=== PATIENT | male | born 1995 | race Caucasian/White ===

== ENCOUNTER 2019-01-04 17:15 | Emergency (ER) | payer OTHER ==
[2019-01-04 17:29] VITALS: TEMP 99; BMI 22.3
[2019-01-04] MEDS ORDERED: PANTOPRAZOLE SODIUM 40 MG VIAL IVPB ONE (18:26)
[2019-01-04] MEDS ORDERED: ACETAMINOPHEN 1000 MG/100 ML VIAL (NON FORMULARY) IVPB ONE (18:26)
[2019-01-04] MEDS ORDERED: ONDANSETRON 4 MG/2 ML VIAL IVPUSH ONE (18:26)
[2019-01-04] MEDS ORDERED: PANTOPRAZOLE SODIUM 40 MG/100 ML BAG IVPB ONE (18:44)
[2019-01-04] MEDS ORDERED: ACETAMINOPHEN INJECTION 100 ML IVPB ONE ×2 (18:44→20:23)
[2019-01-04 19:04] LABS: BASO % 0.2 % (0-2.0); EOS % 0.4 % (0-4.5); HEMATOCRIT 41.8 % (35.4-49); HEMOGLOBIN 14.5 GM/dL (11.7-16.9); LYMPH % 9.9 % (8-40); MCH 29.4 pg (25.7-33.7); MCHC 34.6 g/dl (32.0-35.9); MEAN PLT VOLUME 11.3 fl (7.5-11.1); NEUT % 85.5 % (42.8-82.8); PLATELET COUNT 159 K/MM3 (134-434); RBC 4.91 M/mm3 (4.00-5.60); RDW 12.7 % (11.9-15.9); WHITE BLOOD COUNT 13.4 K/mm3 (4.0-10.0)
[2019-01-04 19:16] LABS: URINE APPEARANCE CLEAR; URINE BILIRUBIN NEGATIVE (<2.0 mg/dL); URINE COLOR YELLOW; URINE GLUCOSE (UA) NEGATIVE (NEGATIVE); URINE KETONE TRACE (NEGATIVE); URINE LEUK ESTERASE NEGATIVE (NEGATIVE); URINE NITRITE NEGATIVE (NEGATIVE); URINE PROTEIN NEGATIVE (NEGATIVE); URINE UROBILINOGEN NEGATIVE mg/dL (0.2-1.0)
[2019-01-04 19:20] LABS: INR 1.11 (0.83-1.09); PROTHROMBIN TIME (PATIENT) 13.1 SEC (9.7-13.0)
[2019-01-04 20:06] LABS: ALBUMIN 4.6 g/dl (3.4-5.0); ALK PHOS 94 U/L (45-117); ANION GAP 8 MMOL/L (8-16); BILIRUBIN,TOTAL 0.4 mg/dL (0.2-1); BLOOD UREA NITROGEN 16 mg/dL (7-18); CALCIUM 9.8 mg/dL (8.5-10.1); CHLORIDE 99 mmol/L (98-107); CO2 28 mmol/L (21-32); CREATININE 0.8 mg/dL (0.55-1.3); GLUCOSE,RANDOM 99 mg/dL (74-106); LIPASE 83 U/L (73-393); POTASSIUM 4.4 mmol/L (3.5-5.1); SGOT/AST 38 U/L (15-37); SGPT/ALT 39 U/L (13-61); SODIUM 134 mmol/L (136-145); TOT PROT 9.1 g/dl (6.4-8.2)
[2019-01-04] MEDS ORDERED: ONDANSETRON 4 MG/2 ML VIAL ONE (20:23)
[2019-01-04] MEDS ORDERED: DICYCLOMINE HCL 20 MG/2 ML AMPUL IM ONE (20:30)
--- NOTE | 2019-01-04 20:30 | PDOC ---
Attending Attestation - HPI HPI: 01/04/19 23:51 The patient is a 23 year old male, with a significant past medical history of asthma and percocet abuse (5 tablets a day) who presents to the emergency department with 2 days of epigastric pain associated with nausea, vomiting, and diarrhea. The patient reports having multiple episodes of bright red blood in vomiting and diarrhea. The patient reports having chest pain described as burning sensation. The patient notes he ate sweet peas with milk last night for dinner. The patient denies fever, chills, shortness of breath, headache or dizziness. The patient denies dysuria. Allergies: NKDA Past surgical history:None reported Social history: percocet use (5x per day) - Physicial Exam PE: 01/04/19 23:51 GENERAL: Awake, alert, and fully oriented, in no acute distress HEAD: No signs of trauma EYES: PERRLA, EOMI, sclera anicteric, conjunctiva clear ENT: Auricles normal inspection, hearing grossly normal, nares patent, oropharynx clear without exudates. Moist mucosa NECK: Normal ROM, supple, no lymphadenopathy, JVD, or masses LUNGS: Breath sounds equal, clear to auscultation bilaterally. No wheezes, and no crackles HEART: Regular rate and rhythm, normal S1 and S2, no murmurs, rubs or gallops ABDOMEN: (+) mild diffuse abdominal tenderness. Soft, normoactive bowel sounds. No guarding, no rebound. No masses EXTREMITIES: Normal range of motion, no edema. No clubbing or cyanosis. No cords, erythema, or tenderness NEUROLOGICAL: Cranial nerves II through XII grossly intact. Normal speech, normal gait SKIN: Warm, Dry, normal turgor, no rashes or lesions noted. <Vinny Verdugo - Last Filed: 01/05/19 00:04> - Medical Decision Making 01/05/19 01:09 EXAM: ABDOMEN \T\ PELVIS CT WITH CONTR HISTORY: Pain COMPARISON: None. FINDINGS: Lung bases are clear. The visualized cardiac chambers are normal size and configuration. Normal liver, gallbladder, pancreas, spleen, adrenal glands and kidneys. The stomach and small bowel are normal. There is a large amount of diffuse solid stool through the mid sigmoid colon with narrowing of the mid and distal sigmoid colon and rectum which may represent infection. No bowel obstruction. There is a small amount of pelvic free fluid but no abscess or free air. There is no aortic aneurysm. There is no significant retroperitoneal lymphadenopathy. Tiny fat containing umbilical hernia is noted. The appendix is normal. The urinary bladder and prostate gland are normal. There is no significant pelvic lymphadenopathy. IMPRESSION: Suspected rectosigmoid colitis with large amount of proximal solid stool. One or more of the following dose reduction techniques were used: automated exposure control, adjustment of the mA and/or kV according to patient size, use of iterative reconstructive technique. Read by: Jesus Baxter MD Documentation prepared by Marsha Martínez, acting as medical technicians for Jimena Anderson DO. <Marsha Martínez - Last Filed: 01/05/19 01:09> - Resident Resident Name: Mich Ríos - ED Attending Attestation I have performed the following: I have examined & evaluated the patient, The case was reviewed & discussed with the resident, I agree w/resident's findings & plan, Exceptions are as noted - HPI HPI: 01/05/19 01:13 23yo male presents for eval of nause and vomiting. Pt states it started after eating beans with milk yesterday. States he thought the meal didn't taste good. Denies fevers. C/o lower abd pain. No dysuria. States cramping and burning sensation. - Physicial Exam PE: 01/05/19 01:14 Gen: aaox3, nad heart: +s1s2 reg lungs: cta b/l abd: soft, mild lower abd ttp, no rebound or guarding, nondistended ext: no c/c/e, ambulatory with a steady gait - Medical Decision Making 01/04/19 20:30 I, Dr. Jimena Anderson DO, attest that this document has been prepared under my direction and personally reviewed by me in its entirety. I further attest, that it accurately reflects all work, treatment, procedures and medical decision -making performed by me. 01/04/19 23:19 a/p: 23yo male with n/v/d and vomiting brb -n/v/d started after eating beans w milk yesterday -states he thought the food was bad -no f/c -c/o abd pain and cramping -no vomiting of blood in the ED -no brbpr on residents rectal exam -will send labs, zofran, ivf hydraiton -will monitor and reassess 01/04/19 23:21 pt states cramping in his abd- abd is nondistended, mildly diffusely ttp, but no rebound or guarding -will add bentyl 01/04/19 23:21 on re-eval: still with abd pain- will add gi cocktail- states burning sensation , abd is soft, no longer nauseated, no vomiting -sitting up, in nad 01/05/19 01:05 pt with procto-rectocolitis on ct will start abx 01/05/19 01:15 pt states he wants to go home tonight will give abx in the ED and then dc with oral abx and gi follow up answered all questions discussed all reasons to reutrn to the ED <Jimena Anderson - Last Filed: 01/05/19 01:21> *DC/Admit/Observation/Transfer - Discharge Dispostion Decision to Admit order: No <Jimena Anderson - Last Filed: 01/05/19 01:21> Diagnosis at time of Disposition: Vomiting, Colitis - Discharge Dispostion Disposition: HOME Condition at time of disposition: Stable - Prescriptions Prescriptions: Ciprofloxacin [Cipro (Restricted To Id)] 500 mg PO Q12H #20 tablet metroNIDAZOLE [Flagyl -] 500 mg PO TID #30 tablet - Referrals Referrals: Denilson Aguila DO [Staff Physician] - Huang Ngo MD [Staff Physician] - - Patient Instructions Printed Discharge Instructions: DI for Colitis Additional Instructions: Please take all antibiotics as prescribed. Please only have clear liquids for 48 hours. If you are feeling better after 48 hours you can add in the BRAT diet - bananas, rice, apple sauce and toast. Please take tylenol as needed for pain. Please stop using percocet. Please return to the ED if you pain worsens or if you have any further concerns. If you develop a fever while taking the antibiotics please return to the ED. Please make an appointment to see the tear down matcher darlin. Please make an appointment to follow up with your PMD. - Post Discharge Activity Forms/Work/School Notes: Back to Work Heart Score/ECG Review - ECG Intrepretation Comment:: 01/04/19 23:22 sinus at 90, nl axis, nl interval, pac, no acute st/t wave findings <Jimena Anderson - Last Filed: 01/05/19 01:21> Attestations - Attestations 01/04/19 23:52 Documentation prepared by Vinny Verdugo, acting as medical technicians for Jimena Anderson DO, MD <Vinny Verdugo - Last Filed: 01/05/19 00:04>
--- NOTE | 2019-01-04 20:38 | PDOC ---
History of Present Illness - General Chief Complaint: Vomiting Blood Stated Complaint: ABD PAIN Time Seen by Provider: 01/04/19 18:17 History Source: Patient Exam Limitations: No Limitations - History of Present Illness Initial Comments: 01/04/19 20:32 Patient is a 23M with history of asthma and percocet abuse here today complaining of vomiting and diarrhea for two days. Patient reports bright red blood in vomit and diarrhea with multiple episodes. Endorses associated epigastric abdominal pain. Denies fevers, chills. Denies dysuria. Endorses a substernal burning chest pain. Uses percocet 5x per day. Denies NSAID use. Denies blood thinners. Denies shortness of breath, headache. Past History - Past Medical History Allergies/Adverse Reactions: Allergies Allergy/AdvReac Type Severity Reaction Status Date / Time No Known Allergies Allergy Verified 01/04/19 17:30 COPD: No - Suicide/Smoking/Psychosocial Hx Smoking History: Never smoked Review of Systems - Review of Systems Able to Perform ROS?: Yes Comments:: 01/04/19 20:36 GENERAL/CONSTITUTIONAL: No fever or chills. No weakness. HEAD, EYES, EARS, NOSE AND THROAT: No change in vision. No sore throat. CARDIOVASCULAR: No chest pain or shortness of breath RESPIRATORY: No cough, wheezing, or hemoptysis. GASTROINTESTINAL: +nausea, +vomiting, +diarrhea. GENITOURINARY: No dysuria, frequency, or change in urination. MUSCULOSKELETAL: No joint or muscle swelling or pain. No neck or back pain. SKIN: No rash NEUROLOGIC: No headache, vertigo, loss of consciousness, or change in strength/ sensation. HEMATOLOGIC/LYMPHATIC: No anemia, easy bleeding, or history of blood clots. ALLERGIC/IMMUNOLOGIC: No hives or skin allergy. *Physical Exam - Vital Signs Last Vital Signs Temp Pulse Resp BP Pulse Ox 99.0 F 79 18 133/85 99 01/04/19 17:28 01/04/19 17:28 01/04/19 17:28 01/04/19 17:28 01/04/19 17:28 - Physical Exam Comments: 01/04/19 20:40 GENERAL: Awake, alert, and fully oriented, running between bathroom and bed HEAD: No signs of trauma, normocephalic, atraumatic EYES: PERRLA, EOMI, sclera anicteric, conjunctiva clear ENT: Auricles normal inspection, hearing grossly normal, nares patent, oropharynx clear without exudates. Moist mucosa NECK: Normal ROM, supple, no lymphadenopathy, JVD, or masses LUNGS: No distress, speaks full sentences, clear to auscultation bilaterally HEART: Regular rate and rhythm, normal S1 and S2, no murmurs, rubs or gallops, peripheral pulses normal and equal bilaterally. ABDOMEN: Nontender, soft, distractable EXTREMITIES: Normal inspection, Normal range of motion, no edema. No clubbing or cyanosis. NEUROLOGICAL: Cranial nerves II through XII grossly intact. Normal speech, normal gait, no focal sensorimotor deficits SKIN: Warm, Dry, normal turgor, no rashes or lesions noted. Moderate Sedation - Procedure Monitoring Vital Signs: Procedure Monitoring Vital Signs Temperature 99.0 F 01/04/19 17:28 Pulse Rate 79 01/04/19 17:28 Respiratory Rate 18 01/04/19 17:28 Blood Pressure 133/85 01/04/19 17:28 O2 Sat by Pulse Oximetry (%) 99 01/04/19 17:28 ED Treatment Course - LABORATORY CBC & Chemistry Diagram: 01/04/19 18:40 01/04/19 18:40 - ADDITIONAL ORDERS Additional order review: Laboratory Results 01/04/19 01/04/19 01/04/19 19:19 19:00 18:50 PT with INR INR Sodium Potassium Chloride Carbon Dioxide Anion Gap BUN Creatinine Creat Clearance w eGFR Random Glucose Calcium Total Bilirubin AST ALT Alkaline Phosphatase Total Protein Albumin Lipase Urine Color Yellow Urine Appearance Clear Urine pH 8.0 Ur Specific [place] 1.024 Urine Protein Negative Urine Glucose (UA) Negative Urine Ketones Trace H Urine Blood Negative Urine Nitrite Negative Urine Bilirubin Negative Urine Urobilinogen Negative Ur Leukocyte Esterase Negative Stool Occult Blood Negative Anti-A Titer Cancelled Blood Type Cancelled Antibody Screen Cancelled 01/04/19 01/04/19 18:40 18:40 PT with INR 13.10 H INR 1.11 H Sodium 134 L Potassium 4.4 Chloride 99 Carbon Dioxide 28 Anion Gap 8 BUN 16 Creatinine 0.8 Creat Clearance w eGFR > 60 Random Glucose 99 Calcium 9.8 Total Bilirubin 0.4 AST 38 H ALT 39 Alkaline Phosphatase 94 Total Protein 9.1 H Albumin 4.6 Lipase 83 Urine Color Urine Appearance Urine pH Ur Specific [place] Urine Protein Urine Glucose (UA) Urine Ketones Urine Blood Urine Nitrite Urine Bilirubin Urine Urobilinogen Ur Leukocyte Esterase Stool Occult Blood Anti-A Titer Blood Type Antibody Screen 01/04/19 18:40 RBC 4.91 MCV 85.0 MCHC 34.6 RDW 12.7 MPV 11.3 H Neutrophils % 85.5 H Lymphocytes % 9.9 Monocytes % 4.0 Eosinophils % 0.4 Basophils % 0.2 Medical Decision Making - Medical Decision Making 01/04/19 23:18 Patient is 23M here today with vomiting and diarrhea. Vitals normal and stable. No peritoneal signs on exam, moving freely without pain. Patient reports multiple episodes of vomiting/diarrhea in ED, but none witnessed. Rectal exam normal with no sally blood on exam. Stool for occult blood negative. DDx includes, but is not limited to: gastritis, uti, cyclic vomiting. CBC shows leukocytosis. CMP reassuring. UA negative. Patient reassessed, still complaining of epigastric pain and nausea. Bentyl give. Will simethicone. Patient signed out to Dr Anderson. *DC/Admit/Observation/Transfer Diagnosis at time of Disposition: Vomiting - Discharge Dispostion Condition at time of disposition: Stable - Referrals - Patient Instructions - Post Discharge Activity
[2019-01-04] MEDS ORDERED: SIMETHICONE 40 MG/0.6 ML BOTTLE PO ONE (23:14)
[2019-01-04] MEDS ORDERED: LIDOCAINE VISCOUS 2% ORAL/TOP 20 ML UNIT-DOSE CUP MM ONE (23:14)
[2019-01-04] MEDS ORDERED: MAG HYDROX/AL HYDROX/SIMETH 30 ML UNIT-DOSE CUP PO ONE (23:14)
[2019-01-04] MEDS ORDERED: SIMETHICONE 80 MG TAB.CHEW (FP) PO ONE (23:30)
[2019-01-05] MEDS ORDERED: MAG HYDROX/AL HYDROX/SIMETH 30 ML UNIT-DOSE CUP ONE (00:22)
[2019-01-05] MEDS ORDERED: LIDOCAINE VISCOUS 2% ORAL/TOP 20 ML UNIT-DOSE CUP ONE (00:22)
[2019-01-05] MEDS ORDERED: CIPROFLOXACIN 400 MG/D5W 400 MG/200 ML IVPB IVPB ONE (01:10)
[2019-01-05] MEDS ORDERED: KETOROLAC TROMETHAMINE 15 MG/ML VIAL IVPUSH ONE (04:26)
[2019-01-05] MEDS ORDERED: KETOROLAC TROMETHAMINE 15 MG/ML VIAL ONE (04:28)
[2019-01-05 04:40] VITALS: BP 131/71; PULSE 87
--- NOTE | 2019-01-05 16:57 | EKG ---
Test Reason : Blood Pressure : / mmHG Vent. Rate : 090 BPM Atrial Rate : 090 BPM P-R Int : 132 ms QRS Dur : 092 ms QT Int : 366 ms P-R-T Axes : 064 060 063 degrees QTc Int : 447 ms SINUS RHYTHM WITH PREMATURE SUPRAVENTRICULAR COMPLEXES OTHERWISE NORMAL ECG NO PREVIOUS ECGS AVAILABLE Confirmed by MELISSA FLEMING, BABAK ([id number]) on 01/05/2019 4:56:48 PM Referred By: Confirmed By:BABAK TORRES MD
== END 2019-01-05 04:42 | disposition home or self-care (01) ==
LOC: JER 17:15
PROC: 3E033NZ Introduction of Analgesics, Hypnotics, Sedatives into Peripheral Vein, Percutaneous Approach (ICD-10-PCS; principal; 2019-01-04)
PROC: 3E033NZ Introduction of Analgesics, Hypnotics, Sedatives into Peripheral Vein, Percutaneous Approach (ICD-10-PCS; 2019-01-04)
PROC: 3E023GC Introduction of Other Therapeutic Substance into Muscle, Percutaneous Approach (ICD-10-PCS; 2019-01-04)
PROC: 3E033GC Introduction of Other Therapeutic Substance into Peripheral Vein, Percutaneous Approach (ICD-10-PCS; 2019-01-04)
PROC: 3E033GC Introduction of Other Therapeutic Substance into Peripheral Vein, Percutaneous Approach (ICD-10-PCS; 2019-01-04)
DX: K52.9 Noninfective gastroenteritis and colitis, unspecified (principal); R11.10 Vomiting, unspecified; J45.909 Unspecified asthma, uncomplicated
CPT/HCPCS: 36415; 74177-TC; 80053; 81003; 82272; 83690; 85025; 85610; 86850; 86900; 86901; 93005; 93010; 99282-25; J0131